=== PATIENT | female | born 1950 | race Caucasian/White ===

== ENCOUNTER → 2016-10-10 | Outpatient (CLI) | payer OTHER ==
--- NOTE | 2016-10-10 15:34 | RAD ---
HISTORY: Shortness of breath Study: Two view chest Comparison: 09/27/2013 Findings: The lungs are clear without consolidation, effusion or pneumothorax. The cardiac and mediastinal co ntours are within normal limits. The soft tissues are unremarkable. IMPRESSION: 1. No acute cardiopulmonary abnormality. Reported By:
--- NOTE | 2016-10-10 16:27 | RAD ---
HISTORY: Lumbosacral radiculopathy Study: Five views lumbar spine Comparison: None Findings: There is minimal anterolisthesis of L5 on S1. Otherwise normal alignment of the lumbar spine. Verte bral body heights are preserved. There is diffuse multilevel spondylosis and degenerative disc spac e narrowing most prominent at L1-L2, L3-L4, and L5-S1. There is multilevel facet arthropathy also se en in the lower lumbar spine.No evidence for acute fracture or subluxation. Cholecystectomy clips ar e noted. There is moderate fecal retention. IMPRESSION: 1. Multilevel lumbar degenerative changes as described without acute osseous abnormality. Reported By:
--- NOTE | 2016-10-10 16:29 | RAD ---
HISTORY: Thoracic spine pain Study: Three views thoracic spine Comparison: None Findings: There is mild increased kyphosis in the upper thoracic spine. Alignment is otherwise normal. Verteb ral body heights are preserved. Multilevel spondylosis and disc space narrowing is present in the mi d thoracic spine region. No acute fracture or subluxation identified. The visualized lung metcalf ar e unremarkable. IMPRESSION: 1. Mild degenerative change in the mid thoracic spine. No acute osseous abnormality. Reported By:
== END ==
LOC: RAD 12:29
PROVIDERS: ATTEND Nurse Practitioner Family
DX: M54.17 Radiculopathy, lumbosacral region (principal); M54.6 Pain in thoracic spine; R06.02 Shortness of breath
CPT/HCPCS: 71020; 72072; 72110

== ENCOUNTER → 2016-10-28 | Outpatient (CLI) | payer OTHER ==
--- NOTE | 2016-10-28 13:05 | MRI ---
HISTORY: Degeneration, thoracic spine pain Study: MRI thoracic spine without contrast Comparison: None Technique: Multiplanar multi-sequence MRI of the thoracic spine was obtained with standard [facility] protocol. Findings: The thoracic spine demonstrates normal alignment. No abnormal cord or marrow signal identified. The surrounding soft tissues are within normal limits. Vertebral body heights are preserved. There is m ultilevel spondylosis throughout the thoracic spine with relative preservation of the disc spaces. IMPRESSION: 1. Mild spondylosis, otherwise unremarkable MRI of the thoracic spine. Reported By:
== END ==
LOC: RAD 10:08
PROVIDERS: ATTEND Nurse Practitioner Family
DX: M51.34 Other intervertebral disc degeneration, thoracic region (principal)
CPT/HCPCS: 72146

== ENCOUNTER → 2016-12-19 | Outpatient (CLI) | payer OTHER ==
--- NOTE | 2016-12-19 12:32 | MG ---
Examination: Bilateral screening mammogram. Clinical history: Routine screening. Technique: Digital CC and MLO views of both breasts were obtained. Computer aided detection analysis was performed and used during the interpretation. Comparison: 11/21/2015. Findings: The breasts are composed of scattered fibroglandular densities. Benign-appearing calcifications are noted in the breasts bilaterally. A skin mole is present overlying the left breast. No suspicious mass, area of architectural distortion or suspicious cluster of microcalcifications is noted. Impression: 1. No mammographic evidence of malignancy. BI-RADS category 2-benign findings. Recommend routine annual screening mammogram. Diagnostic CAD was utilized and reviewed. * 0 (ZERO) - ASSESSMENT INCOMPLETE; ADDITIONAL IMAGING IS NEEDED. * 0C - ASSESSMENT INCOMPLETE, NEEDS ADDITIONAL IMAGING EVALUATION AND/OR PRIOR MAMMOGRAMS FOR COMPAR KAREN. * 1/1 (ONE) - NEGATIVE. * 2/II (TWO) - BENIGN FINDINGS. * 3/III (THREE) - PROBABLY BENIGN FINDING; SHORT INTERVAL FOLLOW-UP SUGGESTED. * 4/IV (FOUR) - SUSPICIOUS ABNORMALITY; BIOPSY SHOULD BE CONSIDERED. * 5/V - HIGHLY SUSPICIOUS OF MALIGNANCY; BIOPSY SHOULD BE PERFORMED. * 6/IV - KNOWN BIOPSY PROVEN MALIGNANCY-APPROPRIATE ACTION SHOULD BE TAKEN. A NEGATIVE X-RAY REPORT SHOULD NOT DELAY BIOPSY IF A DOMINANT OR CLINICALLY SUSPICIOUS MASS IS PRESENT; 4 TO 8 PERCENT OF CANCERS ARE NOT IDENTIFIED BY X-RAY. A NEGATIVE REPORT MAY REINFORCE THE CLINICAL IMPRESSION. ADENOSIS AND DENSE BREASTS MAY OBSCURE AN UNDERLYING NEOPLASM. Reported By:
== END ==
LOC: RAD 10:37
PROVIDERS: ATTEND Nurse Practitioner Family
DX: Z12.31 Encounter for screening mammogram for malignant neoplasm of breast (principal)
CPT/HCPCS: 77067

== ENCOUNTER 2017-09-28 04:31 | Emergency (ER) | payer OTHER ==
[2017-09-28 04:43] VITALS: BP 123/58; BMI 43.9
[2017-09-28 05:17] LABS: BLOOD UREA NITROGEN 18 mg/dL (7-18); CALCIUM 8.5 mg/dL (8.5-10.1); CARBON DIOXIDE 30.7 mmol/L (21-32); CHLORIDE 97 mmol/L (98-107); COR NA(FOR HYPERGLY) 136 mmol/L (136-145); CREATININE 0.91 mg/dL (0.55-1.02); SODIUM 135 mmol/L (136-145); eGFR BLACK RACES > 60 (>60); eGFR NON BLACK RACES > 60 (>60)
[2017-09-28 05:18] LABS: BASOPHILS # (AUTO) 0.1 X10^3/uL (0.0-0.1); EOSINOPHILS # (AUTO) 0.7 x10^3/uL (0.0-0.2); EOSINOPHILS % (AUTO) 6.4 % (0.9-2.9); HEMATOCRIT 37.3 % (36.0-47.0); HEMOGLOBIN 12.3 g/dL (12.0-16.0); LYMPHOCYTES % (AUTO) 17.4 % (21.0-51.0); MEAN CORPUSCULAR HGB CONC 32.9 g/dL (33.0-35.0); MEAN CORPUSCULAR VOLUME 75.9 fL (80.0-100.0); MEAN PLATELET VOLUME 8.8 fL (7.4-11.0); MONOCYTES # (AUTO) 1.2 x10^3/uL (0.3-0.8); MONOCYTES % (AUTO) 10.1 % (0.0-13.0); NEUTROPHILS # (AUTO) 7.6 x10^3/uL (2.2-4.8); NEUTROPHILS % (AUTO) 65.1 % (42.0-75.0); PLATELET COUNT 293 X10^3/uL (150.0-450.0); RED BLOOD COUNT 4.92 X10^6/uL (3.5-5.4); RED CELL DISTRIBUTION WIDTH 15.1 % (11.6-16.5); WHITE BLOOD COUNT 11.6 X10^3/uL (3.6-10.0)
[2017-09-28 05:22] LABS: PLATELET MORPHOLOGY COMMENT NORMAL (NORMAL)
--- NOTE | 2017-09-28 05:45 | RAD ---
Chest, one-view Indication: Cough, congestion Comparison: 10/10/2016 Findings: Heart size is normal. There are patchy opacities within the medial right lung base. The rem ainder of the lungs are clear. No significant pleural effusion or pneumothorax is identified. There i s no acute osseous abnormality. Impression: Patchy opacities within the medial right lung base, suspicious for developing pneumonia. Clinical cor relation and follow-up to complete resolution recommended. Reported By:
--- NOTE | 2017-09-28 06:31 | DR.GENAD ---
HPI - PCP Primary Care Physician: JAZZY ECHEVARRIA - Complaint/Symptoms Chief Complaint Doctors Comments: Patient has been treated with Tamiflu and azithromycin for three days; complaint of severe cough. Admits to a history of lung disease uses nebs as needed. Chief Complaint:: STARTED COUGHING AND HAVING CONGESTION ON FRIDAY AND ITS BECAME WORSE. Self Treatment fo Chief Complaint: HAS TAKEN OMNICEF AND A ZPAK PRIOR TO COMING - Source History Provided: Patient - Mode of Arrival Mode of Arrival: Ambulatory - Timing Onset of Chief Complaint: 09/24/17 PMH - PMH Past Medical History: Yes Past Medical History: Anxiety, Diabetes, Hypertension Past Medical History Comment: MVP Past Surgical History: Yes Surgical History: Cholecystectomy, Hysterectomy - Family History History of Family Medical Conditions: Yes Family Medical History: CT, Coronary Artery Disease, Hypertension - Social History Alcohol Use: None Do you use any recreational Drugs:: No Lives With: Family Lives Where: Home - infectious screening In the last 2 months have you had wt loss of >10#?: NO Have you had fever, night sweats or hemotysis?: No Have you traveled outside the country in the last 6 months?: No Isolation: Standard ROS - Review of Systems Eyes: No Symptoms Reported ENTM: No Symptoms Reported Respiratoy: Non-Productive Cough, Wheezing Cardiovascular: No Symptoms Reported Gastrointestinal/Abdominal: No Symptoms Reported Genitourinary: No Symptoms Reported Neurological: No Symptoms Reported Musculoskeletal: No Symptoms Reported Integumentary: No Symptoms Reported Hematologic/Lymphatic: No Symptoms Reported Endocrine: No Symptoms Reported Psychiatric: No Symptoms Reported All Other Systems: Reviewed and Negative PE - Vital Signs Vitals: Temperature 98.1 F Pulse Rate 88 Respiratory Rate 20 Blood Pressure 123/58 O2 Sat by Pulse Oximetry 96 - General Limitations: No Limitations General Appearance: Alert, In No Apparent Distress - Head Head Exam: Normal Inspection, Atraumatic - Eyes Eye exam: Normal Appearance, PERRL, EOMI - ENT ENT Exam: Normal Exam External Ear Exam: Normal External Inspection TM/Canal Exam: Bilateral Normal Nose Exam: Normal Nose Exam Mouth Exam: Normal Inspection Throat Exam: Normal Inspection - Neck Neck Exam: Normal Inspection - Chest Chest Inspection: Normal Inspection - Respiratory Respiratory Exam: Normal Lung Sounds Bilat Respiratory Exam: Bilateral Clear to Auscultation - Cardiovascular Cardiovascular Exam: Regular Rate, Normal Rhythm - Abdominal Exam Abdominal Exam: Normal Inspection, Normal Bowel Sounds Abdominal Tenderness: negative: RUQ, RLQ, LUQ, LLQ, Epigastrium, Suprapubic, Diffuse, Mild, Moderate, Severe, Other - Extremities Extremities Exam: Normal Inspection, Full ROM - Back Back Exam: Normal Inspection, Full ROM - Neurologic Neurological Exam: Alert, Oriented X3, CN II-XII Intact - Psychiatric Psychiatric Exam: Normal Affect, Normal Mood - Skin Skin Exam: Warm, Dry, Intact Course - Treatment Treatment: Duo Nebs x2 - Reevaluation 1st: Improved - Education/Counseling Educated On: Treatment, Diagnosis, Prognosis ROR - Labs Reviewed Result Diagrams: 09/28/17 05:00 09/28/17 05:00 Laboratory: WBC 11.6 X10^3/uL (3.6-10.0) H 09/28/17 05:00 RBC 4.92 X10^6/uL (3.5-5.4) 09/28/17 05:00 Hgb 12.3 g/dL (12.0-16.0) 09/28/17 05:00 Hct 37.3 % (36.0-47.0) 09/28/17 05:00 MCV 75.9 fL (80.0-100.0) L 09/28/17 05:00 MCH 25.0 pg (27.0-34.0) L 09/28/17 05:00 MCHC 32.9 g/dL (33.0-35.0) L 09/28/17 05:00 RDW 15.1 % (11.6-16.5) 09/28/17 05:00 Plt Count 293 X10^3/uL (150.0-450.0) 09/28/17 05:00 Plt Count Comment Adequate (ADEQUATE) 09/28/17 05:00 MPV 8.8 fL (7.4-11.0) 09/28/17 05:00 Neut % (Auto) 65.1 % (42.0-75.0) 09/28/17 05:00 Lymph % (Auto) 17.4 % (21.0-51.0) L 09/28/17 05:00 [place] % (Auto) 10.1 % (0.0-13.0) 09/28/17 05:00 Eos % (Auto) 6.4 % (0.9-2.9) H 09/28/17 05:00 Baso % (Auto) 1.0 % (0.2-1.0) 09/28/17 05:00 Neut # (Auto) 7.6 x10^3/uL (2.2-4.8) H 09/28/17 05:00 Lymph # (Auto) 2.0 X10^3/uL (1.3-2.9) 09/28/17 05:00 [place] # (Auto) 1.2 x10^3/uL (0.3-0.8) H 09/28/17 05:00 Eos # (Auto) 0.7 x10^3/uL (0.0-0.2) H 09/28/17 05:00 Baso # (Auto) 0.1 X10^3/uL (0.0-0.1) 09/28/17 05:00 Absolute Nucleated RBC 0.0 /100WBC 09/28/17 05:00 Plt Morphology Comment Normal (NORMAL) 09/28/17 05:00 RBC Morphology Normal (NORMAL) 09/28/17 05:00 Sodium 135 mmol/L (136-145) L 09/28/17 05:00 Corrected Sodium 136 mmol/L (136-145) 09/28/17 05:00 Potassium 4.0 mmol/L (3.5-5.1) 09/28/17 05:00 Chloride 97 mmol/L (98-107) L 09/28/17 05:00 Carbon Dioxide 30.7 mmol/L (21-32) 09/28/17 05:00 BUN 18 mg/dL (7-18) 09/28/17 05:00 Creatinine 0.91 mg/dL (0.55-1.02) 09/28/17 05:00 Est GFR (MDRD) Af Amer > 60 (>60) 09/28/17 05:00 Est GFR (MDRD) Non-Af > 60 (>60) 09/28/17 05:00 Glucose 146 mg/dL (65-99) H 09/28/17 05:00 Calcium 8.5 mg/dL (8.5-10.1) 09/28/17 05:00 Influenza Type A (PCR) Negative (NEGATIVE) 09/28/17 05:09 Influenza Type B (PCR) Negative (NEGATIVE) 09/28/17 05:09 - XRAY XRAY Interpreted by: Radiologist (Chest: patchy opacities within the medial right lung base, suspicious for developing pneumonia.) - Diagnosis Discharge Problem: Reactive airway disease with acute exacerbation Qualifiers: Asthma severity: mild Asthma persistence: intermittent Qualified Code(s): J45.21 - Mild intermittent asthma with (acute) exacerbation - Discharge Plan Condition: Stable - Follow ups/Referrals Follow ups/Referrals: COLBY ECHEVARRIA [Primary Care Provider] - 3 days - Instructions
[2017-09-28] MEDS ORDERED: DECADRON JET NEB (RESP USE) NEB ONE ×2 (06:32→06:36)
[2017-09-28] MEDS ORDERED: DUONEB 0.5 MG/3 MG ONE ×2 (06:37→07:29)
[2017-09-28] MEDS ORDERED: DUONEB 0.5 MG/3 MG NEB SCH (06:45)
[2017-09-28] MEDS ORDERED: DUONEB 0.5 MG/3 MG NEB ONE (07:30)
== END 2017-09-28 07:51 | disposition home or self-care (01) ==
LOC: ER 04:31
DX: J45.21 Mild intermittent asthma with (acute) exacerbation (principal)
CPT/HCPCS: 36415; 71045; 80048; 85025; 87502; 94640; 99283; 99284; J7620